=== PATIENT | female | born 1985 | race Caucasian/White ===

== ENCOUNTER 2019-03-06 20:04 | Emergency (ER) | payer OTHER ==
[~2019-03-06] VITALS: Ht 160 cm; Wt 55.3 kg
[2019-03-06 20:38] LABS: BILIRUBIN,URINE NEGATIVE (NEG); CLARITY,URINE CLEAR; COLOR,URINE YELLOW; NITRITE,URINE NEGATIVE (NEG); PH,URINE 7.5; PROTEIN,URINE NEGATIVE (NEG-TRACE)
[2019-03-06 20:40] LABS: BACTERIA,URINE FEW /HPF (0-FEW); SQUAMOUS EPITHELIAL CELL,UR FEW /LPF
[2019-03-06 20:41] LABS: RBC,URINE 0 /HPF (0-2); WBC,URINE 20-40 /HPF (0-4)
[2019-03-06 20:46] LABS: BASO % 1 % (0-3); EOS # 0.1 x10^3/uL (0.0-0.7); EOS % 1 % (0-3); HEMATOCRIT 37.5 % (36.0-47.0); HEMOGLOBIN 13.4 g/dL (12.0-15.5); LYMPH # 1.8 x10^3/uL (1.0-4.8); LYMPH % 23 % (24-48); MEAN CORPUSCULAR HEMOGLOBIN 34 pg (25-35); MEAN CORPUSCULAR HGB CONC 36 g/dL (31-37); MEAN CORPUSCULAR VOLUME 94 fL (79-100); MONO # 0.6 x10^3/uL (0.0-1.1); MONO % 8 % (0-9); NEUT # 5.1 x10^3/uL (1.8-7.7); NEUT % 67 % (31-73); PLATELET COUNT 211 x10^3/uL (140-400); RED BLOOD COUNT 3.99 x10^6/uL (3.50-5.40); RED CELL DISTRIBUTION WIDTH 12.3 % (11.5-14.5); WHITE BLOOD COUNT 7.6 x10^3/uL (4.0-11.0)
[2019-03-06 20:58] LABS: CALCIUM 9.2 mg/dL (8.5-10.1); CREATININE 0.7 mg/dL (0.6-1.0); GFR 95.8; POTASSIUM 3.5 mmol/L (3.5-5.1)
[2019-03-06 21:04] LABS: ALBUMIN 3.9 g/dL (3.4-5.0); ALBUMIN/GLOBULIN RATIO 1.2 (1.0-1.7); TOTAL BILIRUBIN 0.5 mg/dL (0.2-1.0); TOTAL PROTEIN 7.2 g/dL (6.4-8.2)
--- NOTE | 2019-03-06 21:21 | PHYS DOC ---
Past Medical History Past Medical History: No Pertinent History Past Surgical History: Alcohol Use: None Drug Use: None Adult General Chief Complaint Chief Complaint: VAGINAL BLEEDING HPI HPI Patient is a 33 year old female who presents with [address] Cortez. Patient states they did blood work this morning. Patient states that she was sleeping today and when she woke up she began having lower abdominal cramping that would come and go and felt like contractions. Patient states she was also spotting but there were no clots. She said the bleeding has since stopped and is now only the slight darker color, dating that it looks like dark old blood. Patient currently has no pain. Review of Systems Review of Systems Constitutional: Denies fever or chills [] GI: low abdominal pain, denies nausea, vomiting, bloody stools or diarrhea [] : Vaginal spotting. Denies dysuria or hematuria [] Musculoskeletal: Denies back pain or joint pain [] Neurologic: Denies headache, focal weakness or sensory changes [] All other systems were reviewed and found to be within normal limits, except as documented in this note. Allergies Allergies Allergies Coded Allergies Type Severity Reaction Last Updated Verified No Known Drug Allergies 03/06/19 No Physical Exam Physical Exam Constitutional: Well developed, well nourished, no acute distress, non-toxic appearance. [] HENT: Normocephalic, atraumatic, bilateral external ears normal, oropharynx moist, no oral exudates, nose normal. [] Eyes: PERRLA, EOMI, conjunctiva normal, no discharge. [] Neck: Normal range of motion, no tenderness, supple, no stridor. [] Cardiovascular:Heart rate regular rhythm, no murmur [] Lungs & Thorax: Bilateral breath sounds clear to auscultation [] Abdomen: Bowel sounds normal, soft, no tenderness, no masses, no pulsatile masses. [] Skin: Warm, dry, no erythema, no rash. [] Back: No tenderness, no CVA tenderness. [] Extremities: No tenderness, no cyanosis, no clubbing, ROM intact, no edema. [] Neurologic: Alert and oriented X 3, normal motor function, normal sensory function, no focal deficits noted. [] Psychologic: Affect normal, judgement normal, mood normal. Normal physical exam[] Current Patient Data Vital Signs Vital Signs Date Time Temp Pulse Resp B/P (MAP) Pulse Ox O2 Delivery O2 Flow Rate FiO2 03/06/19 20:05 98.3 86 16 113/72 (86) 100 Room Air 98.3 Lab Values Laboratory Tests Test 03/06/19 20:10 03/06/19 20:30 03/06/19 20:35 Urine Collection Type Unknown Urine Color Yellow Urine Clarity Clear Urine pH 7.5 Urine Specific [place] 1.015 Urine Protein Negative mg/dL (NEG-TRACE) Urine Glucose (UA) Negative mg/dL (NEG) Urine Ketones (Stick) Negative mg/dL (NEG) Urine Blood Negative (NEG) Urine Nitrite Negative (NEG) Urine Bilirubin Negative (NEG) Urine Urobilinogen Dipstick 1.0 mg/dL (0.2 mg/dL) Urine Leukocyte Esterase Moderate (NEG) Urine RBC 0 /HPF (0-2) Urine WBC 20-40 /HPF (0-4) Urine Squamous Epithelial Cells Few /LPF Urine Bacteria Few /HPF (0-FEW) Urine Mucus Marked /LPF POC Urine HCG, Qualitative Hcg positive (Negative) White Blood Count 7.6 x10^3/uL (4.0-11.0) Red Blood Count 3.99 x10^6/uL (3.50-5.40) Hemoglobin 13.4 g/dL (12.0-15.5) Hematocrit 37.5 % (36.0-47.0) Mean Corpuscular Volume 94 fL (79-100) Mean Corpuscular Hemoglobin 34 pg (25-35) Mean Corpuscular Hemoglobin Concent 36 g/dL (31-37) Red Cell Distribution Width 12.3 % (11.5-14.5) Platelet Count 211 x10^3/uL (140-400) Neutrophils (%) (Auto) 67 % (31-73) Lymphocytes (%) (Auto) 23 % (24-48) L Monocytes (%) (Auto) 8 % (0-9) Eosinophils (%) (Auto) 1 % (0-3) Basophils (%) (Auto) 1 % (0-3) Neutrophils # (Auto) 5.1 x10^3/uL (1.8-7.7) Lymphocytes # (Auto) 1.8 x10^3/uL (1.0-4.8) Monocytes # (Auto) 0.6 x10^3/uL (0.0-1.1) Eosinophils # (Auto) 0.1 x10^3/uL (0.0-0.7) Basophils # (Auto) 0.0 x10^3/uL (0.0-0.2) Maternal Serum HCG Beta Subunit 62822 mIU/mL (0-5) H Sodium Level 142 mmol/L (136-145) Potassium Level 3.5 mmol/L (3.5-5.1) Chloride Level 105 mmol/L (98-107) Carbon Dioxide Level 25 mmol/L (21-32) Anion Gap 12 (6-14) Blood Urea Nitrogen 7 mg/dL (7-20) Creatinine 0.7 mg/dL (0.6-1.0) Estimated GFR (Cockcroft-Gault) 95.8 BUN/Creatinine Ratio 10 (6-20) Glucose Level 97 mg/dL (70-99) Calcium Level 9.2 mg/dL (8.5-10.1) Total Bilirubin 0.5 mg/dL (0.2-1.0) Aspartate Amino Transferase (AST) 25 U/L (15-37) Alanine Aminotransferase (ALT) 32 U/L (14-59) Alkaline Phosphatase 70 U/L (46-116) Total Protein 7.2 g/dL (6.4-8.2) Albumin 3.9 g/dL (3.4-5.0) Albumin/Globulin Ratio 1.2 (1.0-1.7) Laboratory Tests 03/06/19 20:35 Laboratory Tests 03/06/19 20:35 EKG EKG [] Radiology/Procedures Radiology/Procedures [] Impressions: [facility] [address] [place], [place] [id number] IMAGING REPORT Signed PATIENT: IHSAN BA ACCOUNT: [id number] : 1985 LOCATION: ER AGE: 33 SEX: F EXAM STATUS: REG ER ORD. PHYSICIAN: FIORELLA BIANCHI APRN REASON: vaginal bleeding in PROCEDURE: OB < 14 WKS OB < 14 WKS History: Vaginal bleeding in Comparison: None. Findings: Multiple transabdominal sonographic images of pelvis are submitted. Uterus measured 4.2 x 14.7 x 7.4 cm, retroflexed. No significant free fluid is demonstrated. There is a single intrauterine gestational sac with visible yolk sac and pole. Gestational sac morphology is within normal limits. heart rate was 170 bpm. Placenta and anatomy are not well-visualized this age of the . [place]-rump length measurement of 3.11 cm corresponds with 10 weeks 0 days. Adjusted ultrasound age is 10 weeks 0 days with estimated date of 10/02/2019. Right ovary measured 3.1 x 2.3 x 2.1 cm with normal color flow. Left ovary measured 2.9 x 1.9 x 2.2 cm, normal color flow. Impression: 1. There is a single viable intrauterine , adjusted ultrasound age 10 weeks 0 days with estimated delivery date by ultrasound 10/02/2019. Electronically signed by: Patricia Grant MD (03/06/2019 10:39 PM) [facility] DICTATED and SIGNED BY: PATRICIA GRANT MD DATE: 03/06/19 2239 Course & Med Decision Making Course & Med Decision Making Patient is a 33 year old female who presents with [address] Cortez. Patient states they did blood work this morning. Patient states that she was sleeping today and when she woke up she began having lower abdominal cramping that would come and go and felt like contractions. Patient states she was also spotting but there were no clots. She said the bleeding has since stopped and is now only the slight darker color, dating that it looks like dark old blood. Patient currently has no pain. Alert and oriented. Skin pink warm and dry. Mucous membranes are moist. Patient denies any nausea, vomiting, shortness of air, recent illness, fever, dysuria, abnormal vaginal discharge, numbness or tingling, dizziness, chest pain. Ambulatory with a steady gait. Vital signs within normal limits. No extremity edema. Lungs are clear of dictation all lobes. Abdomen is soft and nontender. Patient is asked if she would like me to do a pelvic exam and CT of her cervical os is closed and she states no, not at this time. Patient states that she did get up pelvic exam and Pap smear done by Dr. Cortez. US shows 1. There is a single viable intrauterine , adjusted ul trasound age 10 weeks 0 days with estimated delivery date by ultrasound 10/02/2019. With a rate of 170. Urinalysis shows infection. Patient will be treated for urinary tract infection. Patient is O-. Patient states that we can wait and she can get her RhoGAM shot at her doctor's visit. I called pharmacy to order the RhoGAM here and he states that the patient is supposed to get it at 28 weeks and then after giving . Patient to follow-up with her OB doctor. [place] Disclaimer Dragon Disclaimer This electronic medical record was generated, in whole or in part, using a voice recognition dictation system. Departure Departure Impression: Primary Impression: Urinary tract infection affecting Disposition: HOME, SELF-CARE Condition: STABLE Referrals: YANNI CORTEZ Jr, MD (PCP) Patient Instructions: - Urinary Tract Infection Additional Instructions: Follow-up with Dr. Hussein. Drink plenty of fluids and take medication as prescribed. Scripts Cephalexin (KEFLEX) 500 Mg Capsule 1 CAP PO BID, #14 CAP Prov: FIORELLA BIANCHI APRN 03/06/19 FIORELLA BIANCHI APRN Mar 06, 2019 21:21
--- NOTE | 2019-03-06 22:42 | RAD ---
OB < 14 WKS History: Vaginal bleeding in Comparison: None. Findings: Multiple transabdominal sonographic images of pelvis are submitted. Uterus measured 4.2 x 14.7 x 7.4 cm, retroflexed. No significant free fluid is demonstrated. There is a single intrauterine gestational sac with visible yolk sac and pole. Gestational sac morphology is within normal limits. heart rate was 170 bpm. Placenta and anatomy are not well-visualized this age of the . [place]-rump length measurement of 3.11 cm corresponds with 10 weeks 0 days. Adjusted ultrasound age is 10 weeks 0 days with estimated date of 10/02/2019. Right ovary measured 3.1 x 2.3 x 2.1 cm with normal color flow. Left ovary measured 2.9 x 1.9 x 2.2 cm, normal color flow. Impression: 1. There is a single viable intrauterine , adjusted ultrasound age 10 weeks 0 days with estimated delivery date by ultrasound 10/02/2019. Electronically signed by: Gilbert Mclaughlin MD (03/06/2019 10:39 PM) [facility]
[2019-03-06] MEDS ORDERED: CEPH-264 PO (23:07)
[2019-03-06 23:20] VITALS: BP 104/70
== END 2019-03-06 23:31 | disposition home or self-care (01) ==
LOC: ER 20:04
DX: O23.41 Unspecified infection of urinary tract in pregnancy, first trimester (principal); Z3A.10 10 weeks gestation of pregnancy
CPT/HCPCS: 36415; 76801; 80053; 81001; 81025; 84702; 85025; 86850; 86900; 86901; 87086; 99285-25

== ENCOUNTER → 2019-03-06 | Outpatient (CLI) | payer OTHER ==
[~2019-03-06] MED LIST: CEPH-264 PO
[2019-03-06 04:45] LABS: BASO % 0 % (0-3); EOS # 0.1 x10^3/uL (0.0-0.7); EOS % 1 % (0-3); LYMPH # 2.8 x10^3/uL (1.0-4.8); LYMPH % 28 % (24-48); MEAN CORPUSCULAR HEMOGLOBIN 33 pg (25-35); MEAN CORPUSCULAR HGB CONC 35 g/dL (31-37); MEAN CORPUSCULAR VOLUME 95 fL (79-100); MONO # 0.8 x10^3/uL (0.0-1.1); MONO % 8 % (0-9); NEUT # 6.3 x10^3/uL (1.8-7.7); NEUT % 63 % (31-73); PLATELET COUNT 218 x10^3/uL (140-400); RED CELL DISTRIBUTION WIDTH 12.5 % (11.5-14.5)
== END | disposition home or self-care (01) ==
LOC: LAB 03:14
PROVIDERS: ATTEND Obstetrics & Gynecology
DX: Z32.01 Encounter for pregnancy test, result positive (principal); O34.219 Maternal care for unspecified type scar from previous cesarean delivery
CPT/HCPCS: 36415; 85025; 86592; 86703; 86762; 86850; 86900; 86901; 87340

== ENCOUNTER 2019-04-03 19:21 | Emergency (ER) | payer OTHER ==
[~2019-04-03] VITALS: Ht 160 cm; Wt 59.0 kg
[2019-04-03] MEDS ORDERED: IV NORMAL SALINE 1000ML BAG 1,000 ML IV ONE ×2 (20:00→21:00)
[2019-04-03 20:08] LABS: CALCIUM 9.3 mg/dL (8.5-10.1); CREATININE 0.8 mg/dL (0.6-1.0); GFR 82.1; POTASSIUM 3.1 mmol/L (3.5-5.1)
[2019-04-03 20:10] LABS: BASO % 0 % (0-3); EOS % 0 % (0-3); HEMATOCRIT 35.3 % (36.0-47.0); HEMOGLOBIN 12.6 g/dL (12.0-15.5); LYMPH # 0.6 x10^3/uL (1.0-4.8); LYMPH % 2 % (24-48); MEAN CORPUSCULAR HEMOGLOBIN 34 pg (25-35); MEAN CORPUSCULAR HGB CONC 36 g/dL (31-37); MEAN CORPUSCULAR VOLUME 94 fL (79-100); MONO # 1.2 x10^3/uL (0.0-1.1); MONO % 4 % (0-9); NEUT # 27.4 x10^3/uL (1.8-7.7); NEUT % 94 % (31-73); PLATELET COUNT 169 x10^3/uL (140-400); RED BLOOD COUNT 3.76 x10^6/uL (3.50-5.40); RED CELL DISTRIBUTION WIDTH 12.3 % (11.5-14.5); WHITE BLOOD COUNT 29.2 x10^3/uL (4.0-11.0)
[2019-04-03 20:15] LABS: ALBUMIN 3.1 g/dL (3.4-5.0); ALBUMIN/GLOBULIN RATIO 0.8 (1.0-1.7); TOTAL BILIRUBIN 0.9 mg/dL (0.2-1.0); TOTAL PROTEIN 7.2 g/dL (6.4-8.2)
[2019-04-03] MEDS ORDERED: ACETAMINOPHEN 500 MG TABLET PO ONE (20:15)
[2019-04-03] MEDS ORDERED: ONDANSETRON PF 4 MG/2 ML VIAL. IV ONE (20:15)
[2019-04-03 20:45] LABS: BILIRUBIN,URINE NEGATIVE (NEG); CLARITY,URINE CLOUDY; COLOR,URINE AMBER; NITRITE,URINE NEGATIVE (NEG); PROTEIN,URINE 100 mg/dL (NEG-TRACE)
[2019-04-03 20:55] LABS: BACTERIA,URINE MANY /HPF (0-FEW); WBC,URINE TNTC /HPF (0-4)
[2019-04-03] MEDS ORDERED: cefTRIAXone IV Push 1 GM VIAL. IVP ONE (21:30)
[2019-04-03 22:06] LABS: % BANDS 18 % (0-9); % LYMPHS 1 % (24-48); % SEGS 81 % (35-66); PLT ESTIMATE ADEQUATE (ADEQUATE)
--- NOTE | 2019-04-03 22:11 | RAD ---
Right upper quadrant ultrasound dated 04/03/2019. No comparison available. CLINICAL INDICATION: Right upper quadrant pain. Elevated white count. FINDINGS: Liver is homogeneous in echogenicity. No focal hepatic mass. Intrahepatic and extra hepatic biliary tree normal in caliber. The common bile duct measures 3 mm. Gallbladder normal in size and echogenicity. No gallbladder wall thickening or pericholecystic fluid. No gallstones are seen. Right kidney measures 13.6 cm in length. There is moderate hydronephrosis. There is a echogenic focus at the upper pole that measures up to 2.6 cm in size. Left kidney was not imaged. Limited visualized portions of pancreas aorta and IVC unremarkable. No significant ascites. IMPRESSION: 1. Moderate right-sided hydronephrosis of uncertain etiology. This could be related to ureteral compression by the fetus or a distal ureteral stone or stricture. 2. There is a vague area of increased echogenicity involving the upper pole the right kidney which is of uncertain etiology. Given the history of elevated white count, focal pyelonephritis is possible. Suggest correlation with urinalysis. A mass would be considered less likely. Follow-up imaging is recommended to ensure resolution. Electronically signed by: Stevo See MD (04/03/2019 10:08 PM) [id number]
--- NOTE | 2019-04-03 22:15 | RAD ---
Indication:Right upper quadrant pain. . TECHNIQUE: Ultrasound OB greater than 14 weeks. COMPARISON: None FINDINGS: Cervix not well visualized but grossly measures 4.7 cm in length. Single intrauterine seen. Left ovary measures 4.0 x 2.0 x 3.1 cm. [place]-rump length measures 7.24 cm corresponding to gestation age of 30 weeks 3 days. Heart rate 186 bpm. Biparietal diameter measures 2.42 cm corresponding to gestation age of 40 weeks 1 day. Head circumference measures 9.43 cm corresponding to gestation age of 40 weeks 2 days. Abdominal circumference measures 7.62 cm corresponding to gestation age of 14 weeks 1 day. Femoral length measures 1.21 cm corresponding to gestation age of 13 weeks 4 days. Placenta is posterior in location. Right ovary not visualized. IMPRESSION: 1. Single live viable intrauterine with estimated gestation age of 13 weeks 6 days and due date of 10/03/2019. 2. Right ovary not visualized. Electronically signed by: Malcolm Kennedy DO (04/03/2019 10:12 PM) [facility]
[2019-04-03] MEDS ORDERED: POTASSIUM CHLORIDE 20 MEQ TABLET.ER. PO ONE (23:30)
[2019-04-04] MEDS ORDERED: ONDA4TAB12 PO (00:07)
[2019-04-04] MEDS ORDERED: HYDR-3164 PO (00:07)
--- NOTE | 2019-04-04 00:07 | PHYS DOC ---
Past Medical History Past Medical History: No Pertinent History (LIZZETH MAGDALENO APRN) Past Surgical History: (LIZZETH MAGDALENO APRN) Alcohol Use: None Drug Use: None (LIZZETH MAGDALENO APRN) Adult General Chief Complaint Chief Complaint: ABDOMINAL PAIN HPI HPI Patient is a 33 year old female patient 2 para 1 currently 14 weeks who presents to the ED today complaining of 8 out of 10 right upper quadrant abdominal pain radiating to the right flank region that began 4 days ago. Patient reports touching her right flank region next the pain worse. Denies any relieving factors to her pain. She states today she started having nausea and vomiting. She has been following up with Dr. Cortez for her . Denies any vaginal bleeding. Denies any unusual vaginal discharge. Denies any concerns for STDs. (LIZZETH MAGDALENO APRN) Review of Systems Review of Systems Constitutional: Denies fever or chills [] Eyes: Denies change in visual acuity, redness, or eye pain [] HENT: Denies nasal congestion or sore throat [] Respiratory: Denies cough or shortness of breath [] Cardiovascular: No additional information not addressed in HPI [] GI: Reports right upper quadrant abdominal pain with nausea and vomiting, denies bloody stools or diarrhea [] : Reports right flank pain. Denies dysuria or hematuria [] Musculoskeletal: Denies back pain or joint pain [] Integument: Denies rash or skin lesions [] Neurologic: Denies headache, focal weakness or sensory changes [] All other systems were reviewed and found to be within normal limits, except as documented in this note. (LIZZETH MAGDALENO APRN) Current Medications Current Medications Current Medications Medications (Trade) Dose Ordered Sig/Les Start Time Stop Time Status Last Admin Dose Admin Acetaminophen (Tylenol) 1,000 mg 1X ONCE 04/03/19 20:15 04/03/19 20:16 DC 04/03/19 20:15 1,000 MG Ceftriaxone Sodium (Rocephin) 1 gm 1X ONCE 04/03/19 21:30 04/03/19 21:31 DC 04/03/19 23:20 1 GM Ondansetron HCl (Zofran) 4 mg 1X ONCE 04/03/19 20:15 04/03/19 20:16 DC 04/03/19 20:15 4 MG Potassium Chloride (Klor-Con) 40 meq 1X ONCE 04/03/19 23:30 04/03/19 23:31 DC 04/03/19 23:19 40 MEQ Sodium Chloride 1,000 ml @ 1,000 mls/hr 1X ONCE 04/03/19 21:00 04/03/19 21:59 DC 04/03/19 20:42 1,000 MLS/HR (JEFFY ALVARADO MD) Allergies Allergies Allergies Coded Allergies Type Severity Reaction Last Updated Verified No Known Drug Allergies 03/06/19 No (JEFFY ALVARADO MD) Physical Exam Physical Exam Constitutional: Well developed, well nourished, no acute distress, non-toxic appearance. [] HENT: Normocephalic, atraumatic, bilateral external ears normal, oropharynx moist, no oral exudates, nose normal. [] Eyes: PERRLA, EOMI, conjunctiva normal, no discharge. [] Neck: Normal range of motion, no tenderness, supple, no stridor. [] Cardiovascular:Heart rate regular rhythm, no murmur [] Lungs & Thorax: Bilateral breath sounds clear to auscultation [] Abdomen: Bowel sounds normal, soft, no tenderness, no masses, no pulsatile masses. [] Skin: Warm, dry, no erythema, no rash. [] Back: No tenderness, mild right CVA tenderness. [] Extremities: No tenderness, no cyanosis, no clubbing, ROM intact, no edema. [] Neurologic: Alert and oriented X 3, normal motor function, normal sensory function, no focal deficits noted. [] Psychologic: Affect normal, judgement normal, mood normal. [] (LIZZETH MAGDALENO APRN) Current Patient Data Vital Signs Vital Signs Date Time Temp Pulse Resp B/P (MAP) Pulse Ox O2 Delivery O2 Flow Rate FiO2 04/04/19 00:13 98.3 97 92/56 (68) 100 Room Air 98.3 04/03/19 19:26 16 (JEFFY ALVARADO MD) Lab Values Laboratory Tests Test 04/03/19 19:40 04/03/19 20:37 04/03/19 20:39 White Blood Count 29.2 x10^3/uL (4.0-11.0) H Red Blood Count 3.76 x10^6/uL (3.50-5.40) Hemoglobin 12.6 g/dL (12.0-15.5) Hematocrit 35.3 % (36.0-47.0) L Mean Corpuscular Volume 94 fL (79-100) Mean Corpuscular Hemoglobin 34 pg (25-35) Mean Corpuscular Hemoglobin Concent 36 g/dL (31-37) Red Cell Distribution Width 12.3 % (11.5-14.5) Platelet Count 169 x10^3/uL (140-400) Neutrophils (%) (Auto) 94 % (31-73) H Lymphocytes (%) (Auto) 2 % (24-48) L Monocytes (%) (Auto) 4 % (0-9) Eosinophils (%) (Auto) 0 % (0-3) Basophils (%) (Auto) 0 % (0-3) Neutrophils # (Auto) 27.4 x10^3/uL (1.8-7.7) H Lymphocytes # (Auto) 0.6 x10^3/uL (1.0-4.8) L Monocytes # (Auto) 1.2 x10^3/uL (0.0-1.1) H Eosinophils # (Auto) 0.0 x10^3/uL (0.0-0.7) Basophils # (Auto) 0.0 x10^3/uL (0.0-0.2) Segmented Neutrophils % 81 % (35-66) H Band Neutrophils % 18 % (0-9) H Lymphocytes % 1 % (24-48) L Platelet Estimate Adequate (ADEQUATE) Sodium Level 130 mmol/L (136-145) L Potassium Level 3.1 mmol/L (3.5-5.1) L Chloride Level 97 mmol/L (98-107) L Carbon Dioxide Level 23 mmol/L (21-32) Anion Gap 10 (6-14) Blood Urea Nitrogen 7 mg/dL (7-20) Creatinine 0.8 mg/dL (0.6-1.0) Estimated GFR (Cockcroft-Gault) 82.1 BUN/Creatinine Ratio 9 (6-20) Glucose Level 117 mg/dL (70-99) H Lactic Acid Level 1.2 mmol/L (0.4-2.0) Calcium Level 9.3 mg/dL (8.5-10.1) Total Bilirubin 0.9 mg/dL (0.2-1.0) Aspartate Amino Transferase (AST) 14 U/L (15-37) L Alanine Aminotransferase (ALT) 13 U/L (14-59) L Alkaline Phosphatase 74 U/L (46-116) Total Protein 7.2 g/dL (6.4-8.2) Albumin 3.1 g/dL (3.4-5.0) L Albumin/Globulin Ratio 0.8 (1.0-1.7) L Lipase 45 U/L (73-393) L Urine Color María Urine Clarity Cloudy Urine pH 6.0 Urine Specific [place] 1.015 Urine Protein 100 mg/dL (NEG-TRACE) Urine Glucose (UA) Negative mg/dL (NEG) Urine Ketones (Stick) 15 mg/dL (NEG) Urine Blood Moderate (NEG) Urine Nitrite Negative (NEG) Urine Bilirubin Negative (NEG) Urine Urobilinogen Dipstick 1.0 mg/dL (0.2 mg/dL) Urine Leukocyte Esterase Large (NEG) Urine RBC 1-2 /HPF (0-2) Urine WBC Tntc /HPF (0-4) Urine Squamous Epithelial Cells None /LPF Urine Bacteria Many /HPF (0-FEW) Urine Mucus Slight /LPF POC Urine HCG, Qualitative Hcg positive (Negative) Laboratory Tests 04/03/19 19:40 Laboratory Tests 04/03/19 19:40 (JEFFY ALVARADO MD) EKG EKG [] (LIZZETH MAGDALENO APRN) Radiology/Procedures Radiology/Procedures []PROCEDURE: OB > 14 WKS W/TV Indication:Right upper quadrant pain. . TECHNIQUE: Ultrasound OB greater than 14 weeks. COMPARISON: None FINDINGS: Cervix not well visualized but grossly measures 4.7 cm in length. Single intrauterine seen. Left ovary measures 4.0 x 2.0 x 3.1 cm. [place]-rump length measures 7.24 cm corresponding to gestation age of 30 weeks 3 days. Heart rate 186 bpm. Biparietal diameter measures 2.42 cm corresponding to gestation age of 40 weeks 1 day. Head circumference measures 9.43 cm corresponding to gestation age of 40 weeks 2 days. Abdominal circumference measures 7.62 cm corresponding to gestation age of 14 weeks 1 day. Femoral length measures 1.21 cm corresponding to gestation age of 13 weeks 4 days. Placenta is posterior in location. Right ovary not visualized. IMPRESSION: 1. Single live viable intrauterine with estimated gestation age of 13 weeks 6 days and due date of 10/03/2019. 2. Right ovary not visualized. Electronically signed by: Malcolm Kennedy DO (04/03/2019 10:12 PM) [facility] DICTATED and SIGNED BY: MALCOLM KENNEDY DO DATE: 04/03/192211 PROCEDURE: ABDOMEN LTD Right upper quadrant ultrasound dated 04/03/2019. No comparison available. CLINICAL INDICATION: Right upper quadrant pain. Elevated white count. FINDINGS: Liver is homogeneous in echogenicity. No focal hepatic mass. Intrahepatic and extra hepatic biliary tree normal in caliber. The common bile duct measures 3 mm. Gallbladder normal in size and echogenicity. No gallbladder wall thickening or pericholecystic fluid. No gallstones are seen. Right kidney measures 13.6 cm in length. There is moderate hydronephrosis. There is a echogenic focus at the upper pole that measures up to 2.6 cm in size. Left kidney was not imaged. Limited visualized portions of pancreas aorta and IVC unremarkable. No significant ascites. IMPRESSION: 1. Moderate right-sided hydronephrosis of uncertain etiology. This could be related to ureteral compression by the fetus or a distal ureteral stone or stricture. 2. There is a vague area of increased echogenicity involving the upper pole the right kidney which is of uncertain etiology. Given the history of elevated white count, focal pyelonephritis is possible. Suggest correlation with urinalysis. A mass would be considered less likely. Follow-up imaging is recommended to ensure resolution. Electronically signed by: Stevo See MD (04/03/2019 10:08 PM) [facility] [id number] DICTATED and SIGNED BY: STEVO SEE MD DATE: 04/03/192207 (LIZZETH MAGDALENO APRN) Course & Med Decision Making Course & Med Decision Making Pertinent Labs and Imaging studies reviewed. (See chart for details) This is a 33-year-old female patient 2 para 1 currently approximately 14 weeks presenting to the ED today complaining of right upper quadrant abdominal pain radiating to the flank region for 4 days. Also complaining of nausea and vomiting today. Vitals on arrival to the ED temperature 100.9, heart rate 127, respirations 16 and room air, blood pressure 123/58, O2 sats 99% on room air. CBC with a WBC of 29.2 with bandemia. Lactic is normal. CMP with sodium of 1:30, potassium of 3.1-oral potassium was given. Urine analysis is noted for large amount of leukocytes. OB ultrasound noted for IUP 13 weeks 6 days. Right upper quadrant ultrasound was also done which was noted for right-sided hydronephrosis of uncertain etiology, also noted for pyelonephritis. Patient was given 2 L of IV fluids, 38 and state infusing. Also given Tylenol and Zofran. Pain is well controlled, she was feeling better and requesting to be discharged to home. I spoke with Dr. Wilkinson who stated if patient is requesting to go home she can be given ampicillin 500 mg 4 times a day for 10 days and follow-up with her MAIL LIST PROCESSOR next week. Patient was provided return precautions and discharged in stable condition. Sepsis reassessment done on the template (LIZZETH MAGDALENO APRN) Course & Med Decision Making Patient case was not presented to me while she was in emergency room. I'm not agree with the patient's discharge because patient did not sign AGAINST MEDICAL ADVICE and was discharged home. (JEFFY ALVARADO MD) Dragon Disclaimer Dragon Disclaimer This electronic medical record was generated, in whole or in part, using a voice recognition dictation system. (LIZZETH MAGDALENO APRN) Date and Time of Reassessment Date: Apr 03, 2019 Time: 23:00 (LIZZETH MAGDALENO APRN) Fluid Challenge Is the fluid challenge complet: No IBW Target Volume Used: No BMI > 30: No (LIZZETH MAGDALENO APRN) Vital Signs Vital Signs: Vital Signs Date Time Temp Pulse Resp B/P (MAP) Pulse Ox O2 Delivery O2 Flow Rate FiO2 04/04/19 00:13 98.3 97 92/56 (68) 100 Room Air 98.3 04/03/19 19:26 16 (JEFFY ALVARADO MD) Temperature Source: Oral (LIZZETH MAGDALENO APRN) Temperature Source: Oral (JEFFY ALVARADO MD) Respirations Respiratory Effort: Normal Respiratory Pattern: Normal (LIZZETH MAGDALENO APRN) Cardiovascular Pulse Rhythm: Regular Heart: Nml rate, reg. rhythm (MUTUNGA,LIZZETH CLAIMS ACCOUNT MANAGER) Lung Sounds Breath Sounds: Clear (MUTUNGA,LIZZETH CLAIMS ACCOUNT MANAGER) Capillary Refil Capillary Refill: Rt Hand > 3 seconds (MUTUNGA,LIZZETH CLAIMS ACCOUNT MANAGER) Peripheral Pulse Pulse Location: Monitor Pulse Strength: Normal (2+) Pulse Assessment Method: Monitor (DAISYUNGA,LIZZETH CLAIMS ACCOUNT MANAGER) Pulse Assessment Method: Monitor (JEFFY ALVARADO MD) Integumentary Skin: Warm Skin Moisture: Moist Skin Turgor: Normal Skin Color: warm Fingernail Color: WNL (MUTUNGA,LIZZETH CLAIMS ACCOUNT MANAGER) Departure Departure Impression: Primary Impression: Pyelonephritis during Additional Impressions: Fever Sepsis Leukocytosis Hypokalemia Disposition: HOME, SELF-CARE Condition: STABLE Referrals: YANNI CORTEZ Jr, MD (PCP) follow up next week Patient Instructions: Pyelonephritis, Adult, [id number] Additional Instructions: Please take the prescribed antibiotics until completed Please push fluids Please take Tylenol as needed for fever Please come back to the emergency room at any point symptoms worsen Please follow-up with your MAIL LIST PROCESSOR next week Scripts Hydrocodone/Apap 5-325 (NORCO 5-325 TABLET) 1 Each Tablet 1 TAB PO Q6HRS, #20 TAB Prov: MUTUNGA,LIZZETH CLAIMS ACCOUNT MANAGER 04/04/19 Ondansetron (ONDANSETRON ODT) 4 Mg Tab.rapdis 1 TAB PO PRN Q6-8HRS, #16 TAB Prov: MUTUNGA,LIZZETH CLAIMS ACCOUNT MANAGER 04/04/19 Problem Qualifiers Additional Impressions: Fever Fever type: unspecified Qualified Codes: R50.9 - Fever, unspecified Sepsis Sepsis type: sepsis due to unspecified organism Sepsis acute organ dysfunction status: unspecified Qualified Codes: A41.9 - Sepsis, unspecified organism Leukocytosis Leukocytosis type: bandemia Qualified Codes: D72.825 - Bandemia ANNIEA,LIZZETH CLAIMS ACCOUNT MANAGER Apr 04, 2019 00:07 JEFFY ALVARADO MD Apr 04, 2019 02:45
[2019-04-04 00:13] VITALS: BP 92/56
[2019-04-06] MEDS ORDERED: NITR100C62 PO (09:03)
== END 2019-04-04 00:18 | disposition home or self-care (01) ==
LOC: ER 19:21
DX: O23.01 Infections of kidney in pregnancy, first trimester (principal); O98.811 Other maternal infectious and parasitic diseases complicating pregnancy, first trimester; A41.9 Sepsis, unspecified organism; O99.281 Endocrine, nutritional and metabolic diseases complicating pregnancy, first trimester; E87.6 Hypokalemia; D72.829 Elevated white blood cell count, unspecified; R50.9 Fever, unspecified; O21.8 Other vomiting complicating pregnancy; Z98.890 Other specified postprocedural states; Z3A.13 13 weeks gestation of pregnancy
CPT/HCPCS: 36415; 76705; 76805; 76817; 80053; 81001; 81025; 83605; 83690; 85007; 85025; 87040; 87086; 96361; 96374; 96375; 99285; J0696; J2405; J7030; 87186

== ENCOUNTER 2019-04-05 10:36 | Inpatient (IN) | payer OTHER ==
[~2019-04-05] VITALS: Ht 160 cm; Wt 59.0 kg
[~2019-04-05 10:36] MED LIST changes: +HYDR-3164 PO; +ONDA4TAB12 PO
[2019-04-05] MEDS ORDERED: IV NORMAL SALINE 1000ML BAG 1,000 ML IV SCH (10:56)
[2019-04-05 11:13] LABS: BILIRUBIN,URINE NEGATIVE (NEG); CLARITY,URINE CLEAR; NITRITE,URINE NEGATIVE (NEG); PH,URINE 6.5; PROTEIN,URINE NEGATIVE (NEG-TRACE)
--- NOTE | 2019-04-05 11:19 | PHYS DOC ---
Past Medical History Past Medical History: No Pertinent History Past Surgical History: Alcohol Use: None Drug Use: None Adult General Chief Complaint Chief Complaint: VAGINAL BLEEDING [facility] HPI Patient is a 33-year-old female who presents with report of vaginal spotting. Patient states that she is 14 weeks at this time. She was seen here recently and diagnosed with right-sided pyelonephritis, was given IV antibiotics, and discharged home with ampicillin. Patient states she has continued to have right-sided flank pain. She states that the bleeding had started this morning and has primarily been spotting but she did saturate about one half of a pad with blood. Patient rates the pain in her right flank is moderate.[] Review of Systems Review of Systems Constitutional: Denies fever or chills [] Respiratory: Denies cough or shortness of breath [] Cardiovascular: No additional information not addressed in HPI [] GI: Complains of right flank pain without vomiting or diarrhea [] : Positive vaginal bleeding[] Musculoskeletal: Positive right-sided back pain [] Integument: Denies rash or skin lesions [] Neurologic: Denies headache, focal weakness or sensory changes [] All other systems were reviewed and found to be within normal limits, except as documented in this note. Current Medications Current Medications Current Medications Medications (Trade) Dose Ordered Sig/Les Start Time Stop Time Status Last Admin Dose Admin Ceftriaxone Sodium (Rocephin) 1 gm 1X ONCE 04/05/19 12:30 04/05/19 12:31 DC 04/05/19 13:15 1 GM Sodium Chloride 1,000 ml @ 1,000 mls/hr Q1H 04/05/19 10:56 04/05/19 11:55 DC 04/05/19 11:33 1,000 MLS/HR Allergies Allergies Allergies Coded Allergies Type Severity Reaction Last Updated Verified No Known Drug Allergies 03/06/19 No Physical Exam Physical Exam Constitutional: Well developed, well nourished, no acute distress. [] HENT: Normocephalic, atraumatic, bilateral external ears normal, oropharynx moist, no oral exudates, nose normal. [] Eyes: PERRLA, EOMI, conjunctiva normal. [] Neck: Normal range of motion, no tenderness, supple, no stridor. [] Cardiovascular: Mildly tachycardic rate with regular rhythm[] Lungs & Thorax: Bilateral breath sounds clear to auscultation [] Abdomen: Bowel sounds normal, soft, no tenderness. [] Skin: Warm, dry, no erythema, no rash. [] Back: Positive right sided CVA tenderness. [] Extremities: No tenderness, no cyanosis, no clubbing, ROM intact. [] Neurologic: Alert and oriented X 3, no focal deficits noted. [] Current Patient Data Vital Signs Vital Signs Date Time Temp Pulse Resp B/P (MAP) Pulse Ox O2 Delivery O2 Flow Rate FiO2 04/05/19 12:25 96 18 91/57 (68) 100 Room Air 04/05/19 10:40 98.3 98.3 Lab Values Laboratory Tests Test 04/05/19 11:00 04/05/19 11:40 Urine Collection Type Unknown Urine Color Yellow Urine Clarity Clear Urine pH 6.5 Urine Specific [place] <=1.005 Urine Protein Negative mg/dL (NEG-TRACE) Urine Glucose (UA) Negative mg/dL (NEG) Urine Ketones (Stick) Negative mg/dL (NEG) Urine Blood Moderate (NEG) Urine Nitrite Negative (NEG) Urine Bilirubin Negative (NEG) Urine Urobilinogen Dipstick 1.0 mg/dL (0.2 mg/dL) Urine Leukocyte Esterase Small (NEG) Urine RBC 3-5 /HPF (0-2) Urine WBC 11-20 /HPF (0-4) Urine Squamous Epithelial Cells Few /LPF Urine Bacteria Few /HPF (0-FEW) Urine Mucus Slight /LPF White Blood Count 20.0 x10^3/uL (4.0-11.0) H Red Blood Count 3.20 x10^6/uL (3.50-5.40) L Hemoglobin 10.7 g/dL (12.0-15.5) L Hematocrit 30.7 % (36.0-47.0) L Mean Corpuscular Volume 96 fL (79-100) Mean Corpuscular Hemoglobin 34 pg (25-35) Mean Corpuscular Hemoglobin Concent 35 g/dL (31-37) Red Cell Distribution Width 12.4 % (11.5-14.5) Platelet Count 158 x10^3/uL (140-400) Neutrophils (%) (Auto) 88 % (31-73) H Lymphocytes (%) (Auto) 6 % (24-48) L Monocytes (%) (Auto) 6 % (0-9) Eosinophils (%) (Auto) 0 % (0-3) Basophils (%) (Auto) 0 % (0-3) Neutrophils # (Auto) 17.6 x10^3/uL (1.8-7.7) H Lymphocytes # (Auto) 1.2 x10^3/uL (1.0-4.8) Monocytes # (Auto) 1.1 x10^3/uL (0.0-1.1) Eosinophils # (Auto) 0.1 x10^3/uL (0.0-0.7) Basophils # (Auto) 0.0 x10^3/uL (0.0-0.2) Segmented Neutrophils % 66 % (35-66) Band Neutrophils % 23 % (0-9) H Lymphocytes % 8 % (24-48) L Atypical Lymphocytes % (Manual) 1 % (0-0) H Monocytes % 2 % (0-10) Platelet Estimate Adequate (ADEQUATE) Sodium Level 137 mmol/L (136-145) Potassium Level 2.8 mmol/L (3.5-5.1) *L Chloride Level 104 mmol/L (98-107) Carbon Dioxide Level 27 mmol/L (21-32) Anion Gap 6 (6-14) Blood Urea Nitrogen 5 mg/dL (7-20) L Creatinine 0.7 mg/dL (0.6-1.0) Estimated GFR (Cockcroft-Gault) 95.8 BUN/Creatinine Ratio 7 (6-20) Glucose Level 94 mg/dL (70-99) Calcium Level 9.2 mg/dL (8.5-10.1) Total Bilirubin 0.5 mg/dL (0.2-1.0) Aspartate Amino Transferase (AST) 16 U/L (15-37) Alanine Aminotransferase (ALT) 16 U/L (14-59) Alkaline Phosphatase 85 U/L (46-116) Total Protein 6.7 g/dL (6.4-8.2) Albumin 2.7 g/dL (3.4-5.0) L Albumin/Globulin Ratio 0.7 (1.0-1.7) L Laboratory Tests 04/05/19 11:40 Laboratory Tests 04/05/19 11:40 EKG EKG [] Radiology/Procedures Radiology/Procedures [] Impressions: PROCEDURE: PREG MORE THAN OR EQ TO 14 WKS EXAM: Abdomen sonogram; obstetrics sonogram. HISTORY: Flank pain. TECHNIQUE: Sonographic imaging of the abdomen and a gravid uterus was performed. COMPARISON: 04/03/2019. FINDINGS: ABDOMEN: The liver is normal in size. No focal hepatic lesion is seen. The gallbladder is unremarkable. The common bile duct is normal in caliber. The pancreas and inferior vena cava are unremarkable. There is mild right hydronephrosis. There is a round echogenic lesion within the upper pole the right kidney measuring 2.7 cm. The usual jets are both seen. PELVIS: There is a single intrauterine fetus with normal heart rate of 158 bpm. Fetus is in breech presentation. The cervix is closed and measures 4.3 cm in length. The anatomic fluid index is normal. There is a grade 1 posterior placenta. The biparietal diameter is 4.50 cm, corresponding with 14 weeks and 2 days. The head circumference is 9.42 cm, corresponding with 14 weeks and 2 days. The abdominal circumference is 7.61 cm, corresponding with 14 weeks and 1 day. The femoral length is 1.32 cm, corresponding with 13 weeks and 6 days. The estimated gestational age patient combined measurements is 14 weeks and 1 day. The estimated due date is 10/03/2019. The maternal ovaries are unremarkable. There is no pelvic free fluid. IMPRESSION: 1. Mild right hydronephrosis. This appears to be slightly decreased compared to the recent exam. The right ureteral jet is seen. 2. Single intrauterine fetus with an estimated gestational age based on ultrasound measurements of 14 weeks and 1 day and normal heart rate. A formal anatomy survey at approximately 18-20 weeks gestational age is recommended. 3. Stable 2.4 cm echogenic lesion within the upper pole of the right kidney, allowing for differences in imaging technique. The possibility of focal pyelonephritis or a mass is not excluded. Correlate with urinalysis. Electronically signed by: Robyn Mojica MD (04/05/2019 1:22 PM) [facility] Course & Med Decision Making Course & Med Decision Making Pertinent Labs and Imaging studies reviewed. (See chart for details) [] Dragon Disclaimer Dragon Disclaimer This electronic medical record was generated, in whole or in part, using a voice recognition dictation system. Departure Departure Impression: Primary Impression: Pyelonephritis during Additional Impression: Vaginal bleeding during Disposition: 09 ADMITTED INPATIENT Condition: GOOD Referrals: YANNI MCKEON Jr, MD (PCP) Problem Qualifiers GUILLERMO GALLAGHER Jr. DO Apr 05, 2019 11:19
--- NOTE | 2019-04-05 11:31 | PDOC1 ---
OB - History Hx of Present Care: Limited Care Ultrasounds: Other (dating sono in office and ED) Obstetrical Complications: Other (vaginal bleeding) Medical Complications: Other (pyelonephritis) Past Family/Social History * Past Medical, Surgical, Family and Obstetric Histories reviewed from chart. Rubella: Immune RPR/VDRL: Negative GBS Status: Unknown HBsAG: Negative OB - Chief Complaint & HPI Date of Admission: Date of Admission: Chief Complaint/History : 2 Para: 1 EGA: 14 Reason for admission: vaginal bleeding, other (failed out pateint management pyelonephritis) Admission Nurse Assessment Rev: Yes OB - Admission Exam Physical Exam Vitals: VS - Last 72 Hours, by Label Date Time Temp Pulse Resp B/P (MAP) Pulse Ox O2 Delivery O2 Flow Rate FiO2 04/05/19 10:40 98.3 114 16 104/61 (75) 98 Room Air 98.3 HEENT: Normal Heart: Regular Rate Lungs: Clear Abdomen: Gravid, Non tender, Soft Extremities: No tenderness or swelling Reflexes: Normal Cervical Dilatation: Fingertip Effacement: 0% Station: Ballotable Membranes: Intact Heart Rate: Normal Contractions on Admission: None Text A: 14 wks IUP Vaginal bleeding: small amount blood removed from vaginal vault. No active bleeding. Pyelonephritis: failed out patient management. Pt. with temp 103 F at home. P: Admit for IV hydration, antiemetics, IV abx and OB sono for placenta location. YANNI MCKEON Jr, MD Apr 05, 2019 11:30
[2019-04-05 11:39] LABS: COLOR,URINE YELLOW; SQUAMOUS EPITHELIAL CELL,UR FEW /LPF
[2019-04-05 11:41] LABS: BACTERIA,URINE FEW /HPF (0-FEW)
[2019-04-05 11:48] LABS: BASO % 0 % (0-3); EOS # 0.1 x10^3/uL (0.0-0.7); EOS % 0 % (0-3); HEMATOCRIT 30.7 % (36.0-47.0); HEMOGLOBIN 10.7 g/dL (12.0-15.5); LYMPH # 1.2 x10^3/uL (1.0-4.8); LYMPH % 6 % (24-48); MEAN CORPUSCULAR HEMOGLOBIN 34 pg (25-35); MEAN CORPUSCULAR HGB CONC 35 g/dL (31-37); MEAN CORPUSCULAR VOLUME 96 fL (79-100); MONO # 1.1 x10^3/uL (0.0-1.1); MONO % 6 % (0-9); NEUT # 17.6 x10^3/uL (1.8-7.7); NEUT % 88 % (31-73); PLATELET COUNT 158 x10^3/uL (140-400); RED CELL DISTRIBUTION WIDTH 12.4 % (11.5-14.5)
[2019-04-05 12:05] LABS: ALBUMIN 2.7 g/dL (3.4-5.0); ALBUMIN/GLOBULIN RATIO 0.7 (1.0-1.7); CALCIUM 9.2 mg/dL (8.5-10.1); CREATININE 0.7 mg/dL (0.6-1.0); GFR 95.8; TOTAL BILIRUBIN 0.5 mg/dL (0.2-1.0); TOTAL PROTEIN 6.7 g/dL (6.4-8.2)
[2019-04-05 12:14] LABS: POTASSIUM 2.8 mmol/L (3.5-5.1)
[2019-04-05] MEDS ORDERED: cefTRIAXone IV Push 1 GM VIAL. IVP ONE (12:30)
--- NOTE | 2019-04-05 13:25 | RAD ---
EXAM: Abdomen sonogram; obstetrics sonogram. HISTORY: Flank pain. TECHNIQUE: Sonographic imaging of the abdomen and a gravid uterus was performed. COMPARISON: 04/03/2019. FINDINGS: ABDOMEN: The liver is normal in size. No focal hepatic lesion is seen. The gallbladder is unremarkable. The common bile duct is normal in caliber. The pancreas and inferior vena cava are unremarkable. There is mild right hydronephrosis. There is a round echogenic lesion within the upper pole the right kidney measuring 2.7 cm. The usual jets are both seen. PELVIS: There is a single intrauterine fetus with normal heart rate of 158 bpm. Fetus is in breech presentation. The cervix is closed and measures 4.3 cm in length. The anatomic fluid index is normal. There is a grade 1 posterior placenta. The biparietal diameter is 4.50 cm, corresponding with 14 weeks and 2 days. The head circumference is 9.42 cm, corresponding with 14 weeks and 2 days. The abdominal circumference is 7.61 cm, corresponding with 14 weeks and 1 day. The femoral length is 1.32 cm, corresponding with 13 weeks and 6 days. The estimated gestational age patient combined measurements is 14 weeks and 1 day. The estimated due date is 10/03/2019. The maternal ovaries are unremarkable. There is no pelvic free fluid. IMPRESSION: 1. Mild right hydronephrosis. This appears to be slightly decreased compared to the recent exam. The right ureteral jet is seen. 2. Single intrauterine fetus with an estimated gestational age based on ultrasound measurements of 14 weeks and 1 day and normal heart rate. A formal anatomy survey at approximately 18-20 weeks gestational age is recommended. 3. Stable 2.4 cm echogenic lesion within the upper pole of the right kidney, allowing for differences in imaging technique. The possibility of focal pyelonephritis or a mass is not excluded. Correlate with urinalysis. Electronically signed by: Robyn Mojica MD (04/05/2019 1:22 PM) [facility]
[2019-04-05 13:41] LABS: % ATYL 1 % (0-0); % BANDS 23 % (0-9); % LYMPHS 8 % (24-48); % MONOS 2 % (0-10); % SEGS 66 % (35-66); PLT ESTIMATE ADEQUATE (ADEQUATE)
[2019-04-05] MEDS ORDERED: NALBUPHINE 10 MG/ML AMPUL. IV PRN (14:30)
[2019-04-05] MEDS ORDERED: ACETAMINOPHEN 325 MG TABLET. PO PRN (14:30)
[2019-04-05] MEDS ORDERED: ONDANSETRON ODT 4 MG TAB.RAPDIS. PO ONE (14:45)
[2019-04-05] MEDS ORDERED: POTASSIUM CHLORIDE 20 MEQ TABLET.ER. PO ONE (15:30)
[2019-04-05 15:40] VITALS: BP 97/63
--- NOTE | 2019-04-05 15:45 | NUR ---
Pt admitted to room 305 per w/c from ER. Assessment completed and hx obtained. Call placed to Dr. Cortez for orders. Verbalized POC to pt and she verbalized understanding. Will monitor and support.
[2019-04-05] MEDS ORDERED: ONDANSETRON PF 4 MG/2 ML VIAL. IVP PRN (16:00)
[2019-04-05] MEDS ORDERED: diphenhydrAMINE HCL 25 MG CAPSULE PO PRN (16:00)
[2019-04-05] MEDS: IV RINGERS,LACTATED 1000ML 1,000 ML IV SCH ×2 (16:11→22:06)
[2019-04-05 20:35] VITALS: BP 98/57
[2019-04-05] MEDS: ACETAMINOPHEN 500 MG TABLET PO PRN (21:02)
[2019-04-05] MEDS ORDERED: PANTOPRAZOLE 40 MG TABLET.DR. PO ONE (22:00)
[2019-04-05 23:00] VITALS: BP 88/51
[2019-04-06] MEDS: ACETAMINOPHEN 500 MG TABLET PO PRN (03:04)
[2019-04-06] MEDS: IV RINGERS,LACTATED 1000ML 1,000 ML IV SCH (04:00)
[2019-04-06 05:30] VITALS: BP 82/49
[2019-04-06 06:09] LABS: BASO % 0 % (0-3); EOS # 0.1 x10^3/uL (0.0-0.7); EOS % 1 % (0-3); HEMOGLOBIN 10.3 g/dL (12.0-15.5); LYMPH # 1.5 x10^3/uL (1.0-4.8); LYMPH % 14 % (24-48); MEAN CORPUSCULAR HEMOGLOBIN 34 pg (25-35); MEAN CORPUSCULAR HGB CONC 35 g/dL (31-37); MEAN CORPUSCULAR VOLUME 97 fL (79-100); MONO # 0.7 x10^3/uL (0.0-1.1); MONO % 7 % (0-9); NEUT # 8.2 x10^3/uL (1.8-7.7); NEUT % 78 % (31-73); PLATELET COUNT 152 x10^3/uL (140-400); RED BLOOD COUNT 3.01 x10^6/uL (3.50-5.40); RED CELL DISTRIBUTION WIDTH 12.5 % (11.5-14.5); WHITE BLOOD COUNT 10.5 x10^3/uL (4.0-11.0)
[2019-04-06 06:18] LABS: ALBUMIN 2.4 g/dL (3.4-5.0); ALBUMIN/GLOBULIN RATIO 0.6 (1.0-1.7); CALCIUM 8.9 mg/dL (8.5-10.1); CREATININE 0.7 mg/dL (0.6-1.0); GFR 95.8; POTASSIUM 3.1 mmol/L (3.5-5.1); TOTAL BILIRUBIN 0.4 mg/dL (0.2-1.0); TOTAL PROTEIN 6.1 g/dL (6.4-8.2)
[2019-04-06] MEDS ORDERED: PANTOPRAZOLE 40 MG TABLET.DR. PO SCH (07:30)
[2019-04-06] MEDS ORDERED: IBUPROFEN 400 MG TABLET. PO PRN (08:45)
--- NOTE | 2019-04-06 08:50 | PDOC3 ---
OB DISCHARGE SUMMARY DATE OF ADMISSION: 04/05/19 DATE OF DISCHARGE: 04/06/19 REASON FOR ADMISSION: Observation/evaluation, Vaginal bleeding, Other (Pyelonephritis) PROCEDURES: Mgmt of Med Complications, Mgmt of OB Complications PROBLEM LIST AT DISCHARGE Problems Medical Problems: (1) Pyelonephritis during Status: Acute (2) Vaginal bleeding during Status: Acute DISCHARGE DIAGNOSIS: Antepartum Bleeding, Others (Pyelonephritis) DISCHARGE INFORMATION: Activity (ad sandra), Diet (regular) HOSPITAL COURSE 14 wks gestation with episode of vaginal bleeding and pyelonephritis that both improved. Hypokalemia improved with IV hydration. YANNI MCKEON Jr, MD Apr 06, 2019 08:50
[2019-04-06 08:59] VITALS: BP 94/57
[2019-04-06 09:00] VITALS: BP 99/58
[2019-04-06] MEDS ORDERED: NITR100C62 PO (09:03)
--- NOTE | 2019-04-06 09:03 | DISCH ---
DISCHARGE INSTRUCTIONS Condition on Discharge Condition on Discharge: Stable Activity After Discharge Activity Instructions for Disc: Activity as tolerated Lifting Instructions after Dis: No heavy lifting Driving Instructions after Dis: Do not drive today Diet after Discharge Diet after Discharge: Regular Contacting the DRNadira after DC Call your doctor for: Concerns you may have Follow-Up Follow up with: Dr. Cortez in 1 week as scheduled. YANNI CORTEZ Jr, MD Apr 06, 2019 09:03
[2019-04-06] MEDS ORDERED: POTASSIUM CL 40MEQ IN 0.9%NACL 1,000 ML IV ONE (09:30)
[2019-04-06] MEDS ORDERED: cefTRIAXone IV Push 1 GM VIAL. IVP SCH (13:00)
[2019-04-06] MEDS ORDERED: POTASSIUM CHLORIDE 20 MEQ TABLET.ER. PO ONE (13:15)
--- NOTE | 2019-04-06 15:00 | NUR ---
pt reports active light spotting . Pt has had todays dose of antibiotic and potassium pt father is here to pick her up discharge instructions given pt discharged to home with father.
[2019-04-06] MEDS ORDERED: NYSTATIN 100,000 UNITS/ML 5 ML ORAL.SUSP. SWSW SCH (17:00)
== END 2019-04-06 15:35 | disposition home or self-care (01) | DRG 832 ==
LOC: ER 10:36 → 3 NORTH 14:15
PROVIDERS: ADMIT Obstetrics & Gynecology; ATTEND Obstetrics & Gynecology
DX: O46.92 Antepartum hemorrhage, unspecified, second trimester (principal); O23.02 Infections of kidney in pregnancy, second trimester; Z3A.14 14 weeks gestation of pregnancy; O99.282 Endocrine, nutritional and metabolic diseases complicating pregnancy, second trimester; E87.6 Hypokalemia
CPT/HCPCS: 36415; 76705; 76805; 80053; 81001; 83605; 85007; 85025; 87086; 96361; 96374; J0696; J2300; J3480; J7030; J7120; Q0162; Q0163; 99285-25; G0378

== ENCOUNTER → 2019-05-14 | Outpatient (CLI) | payer OTHER ==
[~2019-05-14] MED LIST changes: +NITR100C62 PO
--- NOTE | 2019-05-14 12:42 | KCIC ---
EXAM: Obstetrics sonogram. HISTORY: Size and dates discrepancy. TECHNIQUE: Sonographic imaging of a gravid uterus was performed. COMPARISON: 04/05/2019. FINDINGS: There is a single intrauterine fetus in transverse presentation with a heart rate of 140 bpm. The cervix is closed and measures 4.64 cm in length. The amniotic fluid index is normal at 10.6 cm. There is a three-vessel umbilical cord with normal insertion. The placenta extends along the inferior posterior uterine fundus and terminates approximately 3.4 cm from the internal cervical os. The biparietal diameter is 4.68 cm, corresponding with 20 weeks and 1 day. The head circumference is 17.10 cm, corresponding with 19 weeks and 5 days. The abdominal circumference is 14.49 cm, corresponding with 19 weeks and 6 days. The femoral length is 3.18 cm, corresponding with 19 weeks and 6 days. The estimated gestational age patient combined ultrasound measurements is 19 weeks and 6 days and the estimated due date is 10/02/2019. The estimated weight is 316 g. The stomach, kidneys, bladder, spine, brain, facial profile, heart and extremities are unremarkable.. The right left ventricular outflow tracts are difficult to assess due to presentation. The maternal adnexal regions are unremarkable. IMPRESSION: 1. Single intrauterine fetus in transverse presentation with a normal heart rate and gestational age based on ultrasound measurements of 19 weeks and 6 days. This corresponds exactly with an estimated gestational age based on LMP of 9 weeks and 6 days. 2. Posterior placenta which extends inferiorly along the uterine fundus. This terminates approximately 3.4 cm from the internal cervical os. This is not within limits for a low-lying placenta. 3. Suboptimal evaluation of the ventricular outflow tracts due to presentation. Short-term follow-up can be performed to complete an otherwise unremarkable anatomy survey. Electronically signed by: Robyn Mojica MD (05/14/2019 12:39 PM) [place] [id number]
== END | disposition home or self-care (01) ==
LOC: KCIC US 10:46
PROVIDERS: ATTEND Obstetrics & Gynecology
DX: O26.842 Uterine size-date discrepancy, second trimester (principal); Z3A.19 19 weeks gestation of pregnancy
CPT/HCPCS: 76805

== ENCOUNTER → 2019-07-10 | Outpatient (CLI) | payer OTHER ==
[~2019-07-10] VITALS: Ht 142.2 cm; Wt 70.8 kg
[2019-07-10 10:20] LABS: BASO # 0.1 x10^3/uL (0.0-0.2); BASO % 1 % (0-3); EOS # 0.2 x10^3/uL (0.0-0.7); EOS % 1 % (0-3); HEMATOCRIT 35.3 % (36.0-47.0); HEMOGLOBIN 12.4 g/dL (12.0-15.5); LYMPH # 2.5 x10^3/uL (1.0-4.8); LYMPH % 17 % (24-48); MEAN CORPUSCULAR HEMOGLOBIN 34 pg (25-35); MEAN CORPUSCULAR HGB CONC 35 g/dL (31-37); MEAN CORPUSCULAR VOLUME 96 fL (79-100); MONO # 0.7 x10^3/uL (0.0-1.1); MONO % 5 % (0-9); NEUT # 11.1 x10^3/uL (1.8-7.7); NEUT % 77 % (31-73); PLATELET COUNT 215 x10^3/uL (140-400); RED BLOOD COUNT 3.68 x10^6/uL (3.50-5.40); RED CELL DISTRIBUTION WIDTH 12.4 % (11.5-14.5); WHITE BLOOD COUNT 14.6 x10^3/uL (4.0-11.0)
== END | disposition home or self-care (01) ==
LOC: LAB 09:54
PROVIDERS: ATTEND Obstetrics & Gynecology
DX: O09.93 Supervision of high risk pregnancy, unspecified, third trimester (principal); O44.03 Complete placenta previa NOS or without hemorrhage, third trimester; Z3A.29 29 weeks gestation of pregnancy
CPT/HCPCS: 36415; 82950; 85025; 86850; 86900; 86901; 96372; J2791

== ENCOUNTER → 2019-07-15 | Outpatient (CLI) | payer OTHER ==
--- NOTE | 2019-07-15 14:29 | KCIC ---
EXAM: Obstetrics sonogram. HISTORY: Low lying placenta follow-up. TECHNIQUE: Transabdominal and transvaginal sonographic imaging of a gravid uterus was performed. COMPARISON: 05/14/2019. FINDINGS: There is a single intrauterine fetus in cephalic presentation with a normal heart rate of 143 bpm. There is normal and its fluid index of 14.2 cm. There is a posterior placenta without evidence of placenta previa. The placental margin extends to 6.7 cm from the internal cervical os. The cervix is closed and measures 5.3 cm in length. The biparietal diameter is 7.39 cm, corresponding with 29 weeks and 5 days. The head circumference is 26.97 cm, corresponding with 29 weeks and 3 days. The abdominal circumference is 24.99 cm, corresponding with 20 weeks and 1 day. The femoral length is 5.57 cm, corresponding with 29 weeks and 2 days. The estimated gestational age patient combined ultrasound measurements is 29 weeks and 3 days and the estimated due date is 09/27/2019. The estimated weight is 1369 g. IMPRESSION: 1. Single intrauterine fetus in cephalic presentation with normal heart rate and gestational age based on ultrasound measurements of 29 weeks and 3 days. 2. No evidence of placenta previa or low-lying placenta. 3. Note is made that the anatomy is not formally assessed on this exam. Electronically signed by: Robyn Mojica MD (07/15/2019 2:26 PM) [place] [id number]
== END | disposition home or self-care (01) ==
LOC: KCIC US 08:40
PROVIDERS: ATTEND Obstetrics & Gynecology
DX: O09.93 Supervision of high risk pregnancy, unspecified, third trimester (principal); O44.03 Complete placenta previa NOS or without hemorrhage, third trimester; Z3A.29 29 weeks gestation of pregnancy
CPT/HCPCS: 76816

== ENCOUNTER → 2019-08-28 | Outpatient (CLI) | payer OTHER ==
--- NOTE | 2019-08-28 18:58 | RAD ---
Examination: OB LIMITED History: Assessment of weight and placental placement. Comparison/Correlation: 05/14/2019 and 07/15/2019 over the ultrasound exams Findings: Limited OB ultrasound exam was performed. Single living intrauterine gestation is present with cephalic lie. Placenta is located at the posterior fundal region and is unremarkable. Amniotic fluid index is normal at 13.9. heart rate is 128 BPM. anatomy identified include: Four-chamber heart, stomach, kidneys, spine, brain. breathing motion and heart motion noted. Biparietal diameter is 9.1 cm corresponding 36 weeks 5 days. Head circumference is 32.5 cm corresponding 36 weeks 6 days. Abdominal circumference is 31.7 cm corresponding 35 weeks 4 days. Femur length is 6.8 cm corresponding 35 weeks 0 day. Head circumference to abdominal circumference ratio is 1.03. Estimated weight is 2741 g +/- 406 g. Ultrasound EDC is 09/25/2019. Maternal cervical length is 4.5 cm. Impression: Single living intrauterine gestation is present with average ultrasound age of 36 weeks 0 days and EDC of 09/25/2019. Fundal location of the placenta. Adequate interval growth. Estimated weight is at the 55th percentile. Electronically signed by: Rolo Haque MD (08/28/2019 6:56 PM) [id number]
== END | disposition home or self-care (01) ==
LOC: US 04:53
PROVIDERS: ATTEND Obstetrics & Gynecology
DX: O26.843 Uterine size-date discrepancy, third trimester (principal); Z3A.35 35 weeks gestation of pregnancy
CPT/HCPCS: 76815